=== PATIENT | female | born 1965 | race Caucasian/White ===

== ENCOUNTER 2018-07-13 19:54 | Emergency (ER) | payer OTHER ==
[~2018-07-13] VITALS: Ht 167.6 cm; Wt 63.5 kg
[~2018-07-13 19:54] MED LIST: Acetaminophen PO; HYDR-3326 PO
[2018-07-13] MEDS ORDERED: KETOROLAC TROMETHAMINE 30 MG INJ ONE (20:26)
[2018-07-13] MEDS: KETOROLAC TROMETHAMINE 30 MG INJ IM ONE (20:28)
[2018-07-13] MEDS ORDERED: MORPHINE SULFATE 4 MG/1 ML DISP.SYRIN ONE (21:15)
[2018-07-13] MEDS: MORPHINE SULFATE 4 MG/1 ML DISP.SYRIN IM ONE (21:17)
--- NOTE | 2018-07-13 21:27 | NUR ---
Patient discharged to home in stable conditon. Written and verbal after care instructions given. Patient verbalizes understanding of instructions. Pt ambulated out of ER in steady gait accompanied by who will drive home. All belongings with pt. VSS. NAD noted. Shoulder sling applied. CMS [facility].
[2018-07-13 21:32] VITALS: BP 141/81
== END 2018-07-13 21:33 | disposition home or self-care (01) ==
LOC: ER 19:56
DX: S42.022A Displaced fracture of shaft of left clavicle, initial encounter for closed fracture (principal); F10.129 Alcohol abuse with intoxication, unspecified; F17.200 Nicotine dependence, unspecified, uncomplicated; W01.0XXA Fall on same level from slipping, tripping and stumbling without subsequent striking against object, initial encounter; Y93.89 Activity, other specified; Y92.89 Other specified places as the place of occurrence of the external cause; Y99.8 Other external cause status
CPT/HCPCS: 73000; 73030; A4663; J1885; J2270